=== PATIENT | female | born 2000 | race Hispanic/Latino ===

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

== ENCOUNTER 2020-08-31 04:57 | Emergency (ER) | payer MEDICAID ==
[2020-08-31 05:24] VITALS: BP 91/44
[2020-08-31 06:10] LABS: Basophils % (Auto) 0.3 % (0.0-1.8); Eosinophils # (Auto) 0.1 K/mm3 (0.0-0.4); Eosinophils % (Auto) 0.9 % (0.0-4.3); Hematocrit 36.2 % (30.3-42.9); Hemoglobin 12.2 gm/dl (10.1-14.3); Lymphocytes # (Auto) 1.3 K/mm3 (1.2-5.4); Lymphocytes % (Auto) 23.4 % (13.4-35.0); Mean Corpuscular HGB Conc 34 % (30-34); Mean Corpuscular Volume 87 fl (79-97); Monocytes # (Auto) 0.4 K/mm3 (0.0-0.8); Monocytes % (Auto) 6.4 % (0.0-7.3); Platelet Count 162 K/mm3 (140-440); Red Blood Count 4.17 M/mm3 (3.65-5.03); Red Cell Distribution Width 13.9 % (13.2-15.2)
--- NOTE | 2020-08-31 07:14 | Ultrasound Report ---
ULTRASOUND OBSTETRIC INDICATION / CLINICAL INFORMATION: vaginal bleeding. TECHNIQUE: Transabdominal. COMPARISON: None available. FINDINGS: GESTATIONAL SAC: Well-defined oval shape and intrauterine in location. Gestational sac measures 1.22 cm, corresponding to 6 weeks, 0 days. EMBRYO/FETUS: No pole identified. ADNEXA: No significant abnormality. FREE FLUID: Small amount of free fluid in the cul-de-sac. ADDITIONAL FINDINGS: None. IMPRESSION: There is a gestational sac in the uterus with sac size corresponding to 6 weeks, 0 days. No damián e is identified. Recommend correlation with clinical dating and also potentially hcg value to determi ne viability. Signer Name: Mendoza Wright MD Signed: 08/31/2020 7:09 AM Workstation Name: [id number]
== END 2020-08-31 11:38 ==
LOC: ED 04:57
DX: O20.8 Other hemorrhage in early pregnancy (principal); O21.8 Other vomiting complicating pregnancy; Z3A.14 14 weeks gestation of pregnancy; Z53.21 Procedure and treatment not carried out due to patient leaving prior to being seen by health care provider
CPT/HCPCS: 36415; 76801; 84702; 85025; 86900; 86901

== ENCOUNTER 2021-05-20 09:15 | Emergency (ER) | payer MEDICAID ==
[2021-05-20 10:25] LABS: Basophils % (Auto) 0.3 % (0.0-1.8); Eosinophils % (Auto) 0.1 % (0.0-4.3); Hematocrit 39.2 % (30.3-42.9); Hemoglobin 13.3 gm/dl (10.1-14.3); Lymphocytes # (Auto) 0.6 K/mm3 (1.2-5.4); Lymphocytes % (Auto) 9.1 % (13.4-35.0); Mean Corpuscular HGB Conc 34 % (30-34); Mean Corpuscular Volume 84 fl (79-97); Monocytes # (Auto) 0.3 K/mm3 (0.0-0.8); Monocytes % (Auto) 3.8 % (0.0-7.3); Platelet Count 223 K/mm3 (140-440); Red Cell Distribution Width 15.1 % (13.2-15.2)
[2021-05-20 10:35] LABS: Bilirubin,Urine NEG (Negative); Blood,Urine NEG (Negative); Color,Urine Yellow (Yellow); Mucus,Urine FEW /HPF; Urobilinogen,Urine < 2.0 mg/dL (<2.0)
[2021-05-20 10:46] LABS: Alanine Aminotransferase 14 units/L (7-56); Albumin 4.4 g/dL (3.9-5); Blood Urea Nitrogen 4 mg/dL (7-17); Calcium 9.4 mg/dL (8.4-10.2); Hemolysis Index 6
[2021-05-20 10:47] LABS: BUN/Creatinine Ratio 8
[2021-05-20] MEDS ORDERED: SODIUM CHLORIDE 0.9% 1000 ML 1,000 ML IV ONE ×2 (11:39→11:54)
--- NOTE | 2021-05-20 11:41 | Event Note ---
ED Screening Note Date of service: 05/20/21 Time: 11:40 ED Screening Note: 21-year-old female (A2; 12 weeks gestation) presents to the emergency department with complaints of nausea and vomiting for 3 days. Patient states she was treated for similar symptoms at an urgent care facility in [place] and diagnosed with "heat stroke." She has been unable to keep down her antiemetics or vitamins. She has been evaluated by an press loader and her has reportedly been progressing normally. No known sick contacts. No vaginal bleeding. Tachycardic in triage. General: Awake, appropriately interactive. Appears fatigued. Neck: Supple. Full range of motion intact. Cardiovascular: Normal peripheral perfusion. Pulmonary: No respiratory distress. Patient is speaking normally without use of accessory muscles. Skin: No apparent rashes or lesions. Neurological: No facial asymmetry. Speech is clear. Follows commands. Patient is alert and oriented. Musculoskeletal: Moves all four extremities spontaneously with normal range of motion. Psych: Cooperative. Appropriate mood and affect. I have greeted and performed a focused rapid initial assessment of this patient. A comprehensive ED assessment and evaluation of the patient, analysis of all test results, and completion of the medical decision-making process will be conducted by additional ED providers. This initial assessment/diagnostic orders/clinical plan/treatment(s) is/are subject to change based on patients health status, clinical progression and re-assessment. Further treatment and workup at subsequent clinical provider's discretion. Patient/guardian urged not to elope from the ED as their condition may be serious if not clinically assessed and managed.
[2021-05-20] MEDS ORDERED: METOCLOPRAMIDE 10 MG/2 ML INJ IV ONE (11:54)
[2021-05-20] MEDS ORDERED: ONDANSETRON 4 MG/2 ML INJ IV ONE (11:54)
--- NOTE | 2021-05-20 11:56 | Emergency Department Report ---
ED General Adult HPI - General Chief complaint: Nausea/Vomiting/Diarrhea Stated complaint: VOMITING FOR 3 DAYS Time Seen by Provider: 05/20/21 11:52 Source: patient Mode of arrival: Ambulatory Limitations: No Limitations - History of Present Illness Initial comments: 21-year-old female (A2; 12 weeks gestation) presents to the emergency department with complaints of nausea and vomiting for 3 days. Patient states she was treated for similar symptoms at an urgent care facility in [place] and diagnosed with "heat stroke." She has been unable to keep down her antiemetics or vitamins. She has been evaluated by an auto haulaway driver and her has reportedly been progressing normally. No known sick contacts. No current steroid or antibiotic use. Denies fever, chills, chest pain, shortness of breath, hematemesis, abdominal pain, pelvic pain, vaginal bleeding, vaginal discharge, diarrhea. Denies all other complaints at this time. - Related Data Previous Rx's Medication Instructions Recorded Last Taken Type Doxylamine Succinate/Vit B6 2 each PO QHS 14 Days tablet. 05/20/21 Unknown Rx [Doxylamine-Pyridoxine 10-10 mg] Ondansetron [Zofran Odt] 4 mg PO Q4H #20 tab.rapdis 05/20/21 Unknown Rx Allergies Allergy/AdvReac Type Severity Reaction Status Date / Time No Known Allergies Allergy Verified 06/05/17 22:54 ED Review of Systems ROS: Stated complaint: VOMITING FOR 3 DAYS Other details as noted in HPI Other: GENERAL: Positive for generalized weakness. ENT: Negative for ear pain, difficulty hearing, sore throat, nasal congestion, epistaxis. CARDIOVASCULAR: Negative for chest pain, palpitations, lower extremity swelling. PULMONARY: Negative for cough, dyspnea, wheezing, orthopnea, cyanosis. GASTROINTESTINAL: Positive for nausea and vomiting MUSCULOSKELETAL: Negative for joint pain, joint swelling, myalgias, back pain, neck pain. NEUROLOGICAL: Negative for headache, seizure, syncope, paresthesias, weakness. INTEGUMENTARY: Negative for erythema, rash, diaphoresis, laceration, ecchymosis. HEMATOLOGICAL: Negative for hemoptysis, hematemesis, hematochezia, hematuria. PSYCHIATRIC: Negative for hallucinations, suicidal ideation, homicidal ideation, anxiety, depression. ED Past Medical Hx - Past Medical History Previous Medical History?: Yes Hx Asthma: Yes Additional medical history: Ectopic - Surgical History Past Surgical History?: No - Social History Smoking Status: Never Smoker Substance Use Type: None - Medications Home Medications: Home Medications Medication Instructions Recorded Confirmed Last Taken Type Doxylamine Succinate/Vit B6 2 each PO QHS 14 Days tablet. 05/20/21 Unknown Rx [Doxylamine-Pyridoxine 10-10 mg] Ondansetron [Zofran Odt] 4 mg PO Q4H #20 tabrodolfo 05/20/21 Unknown Rx ED Physical Exam - General Limitations: No Limitations - Other Other exam information: General: Awake and alert. Appears fatigued. Head: Atraumatic, normocephalic. Eyes: EOMI. Pupils are equal and round. Normal sclera and conjunctiva. ENT: Oral mucosa is dry. Normal pharyngeal exam. Neck: Supple. No lymphadenopathy. Pulmonary: No respiratory distress. Clear to auscultation bilaterally. Cardiac: Tachycardic pulses are palpable and equal bilaterally. No lower extremity cyanosis or edema. Skin: Warm and dry. No rashes. Abdomen: Soft, non-tender, non-protuberant. No guarding, rigidity, or rebound. Bowel sounds are normal. No organomegaly or masses noted. Back: Normal alignment. No CVA tenderness. Extremities: Symmetrical. Full range of motion intact. Neurological: Alert and oriented, appropriately interactive, no focal deficits. Psych: Cooperative. Appropriate mood and affect. Speech is evenly metered. Thoughts are logically construed. ED Course Vital Signs 05/20/21 05/20/21 05/20/21 09:55 12:46 14:45 Temperature 98.9 F Pulse Rate 108 H 88 82 Respiratory 20 16 15 Rate Blood Pressure 97/58 Blood Pressure 93/47 114/66 [Right] O2 Sat by Pulse 98 99 100 Oximetry ED Medical Decision Making - Lab Data Result diagrams: 05/20/21 10:13 05/20/21 10:13 - Medical Decision Making Differential diagnosis including but not limited to: hyperemesis gravidarum, dehydration, electrode abnormality, hypoglycemia, urinary tract infection, heat related illness, pancreatitis, cholecystitis, viral illness Patient presents to the emergency department with complaints of nausea and vomiting. Labs consistent with dehydration. No evidence of concomitant infection. Abdominal exam is benign. Patient denies vaginal bleeding. heart tones within normal limits. Patient was administered two liters of IV fluids, antiemetics, and thiamine replacement. On reevaluation, patient is stable and symptoms have improved. Tachycardia resolved. She is tolerating oral intake without difficulty. No further vomiting in the emergency department. Patient states her nausea is currently resolved and she is comfortable with being discharged home. Patient will be prescribed antiemetics and instructed to follow-up with her auto haulaway driver this week. She is under the care of a local auto haulaway driver and agrees to call on Saturday to schedule a follow- up appointment. Patient expressed understanding and is agreeable to plan of care. Diet modifications discussed. Strict return precautions provided. Repeat exam is unremarkable and benign. History, exam, diagnostic testing, and current condition do not suggest worrisome pathology to warrant further testing, continued ED treatment, admission, or surgical evaluation at this point. Given the low probability of a significant medical illness, it would be more likely to result in harm than benefit to perform further testing at this stage. Discussed findings, presumptive diagnosis, need for follow-up and specific signs/symptoms that should prompt immediate return to the emergency department. Instructions w ere explained in detail to the patient in addition to giving written discharge information. Patient expressed understanding and was given the opportunity to ask questions, all of which were satisfactorily answered prior to discharge home. Critical care attestation.: If time is entered above; I have spent that time in minutes in the direct care of this critically ill patient, excluding procedure time. ED Disposition Clinical Impression: Dehydration during Disposition: [id number] TO HOME OR SELFCARE Is pt being admited?: No Does the pt Need Aspirin: No Condition: Stable Instructions: Dehydration, Adult Additional Instructions: Take medications as directed for nausea/vomiting. Rest. Drink plenty of fluids. Gradually advance diet slowly as tolerated. Follow-up with your auto haulaway driver this week. Call Saturday to schedule an appointment. Return to the emergency department immediately for new or worsening symptoms. Specifically, return to the emergency department immediately for fever, worsening vomiting, abdominal pain, pelvic pain, vaginal bleeding, mental status changes, loss of consciousness, or any other concerns. Prescriptions: Doxylamine Succinate/Vit B6 [Doxylamine-Pyridoxine 10-10 mg] 2 each PO QHS 14 Days tablet. Ondansetron [Zofran Odt] 4 mg PO Q4H #20 tab.rapdis Referrals: CADEN AMBROCIO MD [Staff Physician] - 3-5 Days Time of Disposition: 14:17
[2021-05-20] MEDS ORDERED: THIAMINE 100 MG in SODIUM CHLORIDE 0.9% 50 ML IV ONE (12:30)
[2021-05-20] MEDS ORDERED: diphenhydrAMINE 50 MG/ML VIAL IV ONE (12:31)
[2021-05-20 14:52] VITALS: BP 114/66
== END 2021-05-20 14:45 | disposition home or self-care (01) ==
LOC: ED 09:15
DX: O26.891 Other specified pregnancy related conditions, first trimester (principal); E86.0 Dehydration; J45.909 Unspecified asthma, uncomplicated; Z3A.12 12 weeks gestation of pregnancy; Z79.899 Other long term (current) drug therapy
CPT/HCPCS: 36415; 80053; 81001; 82550; 83690; 85025; 96361; 96365; 96375; 99283; J1200; J2405; J2765; J3411; J7030